=== PATIENT | female | born 1995 | race Caucasian/White ===

== ENCOUNTER 2018-03-15 05:41 | Emergency (ER) | payer MEDICARE ==
[~2018-03-15] VITALS: Ht 160 cm; Wt 86.2 kg
[~2018-03-15 05:41] MED LIST: BENTYL 10 MG CA10 M1 PO; CARVEDILOL12.5 MG PO; CYMBALTA20 MG PO; FLEXERIL; GABAPENTIN100 MG; HYDROCODON-ACE1 EAC7 PO; LISINOPRIL20 MG; LYRICA 50 MG50 MG PO; NORVASC2.5 MG PO; PERCOCET 5-3251 EACH PO; PREDNISONE 20 M20 M1 PO; REMICADE 1100 MG/VIA; TRAMADOL 50 MG50 MG PO; ZANAFLEX2 MG PO; ZESTRIL5 MG PO; ZOFRAN ODT4 MG PO; [UNRECOGNIZED DRUG - REMARK]
[2018-03-15] MEDS ORDERED: PROTONIX 20 MG20 M1 PO (05:56)
[2018-03-15] MEDS ORDERED: AMITRIPTYLINE H25 M2 PO (05:57)
[2018-03-15] MEDS ORDERED: HUMIRA40 MG/0.8 SUBQ (05:57)
[2018-03-15] MEDS ORDERED: LOTEMAX3.5 GM OPHTHALMIC (05:58)
[2018-03-15] MEDS ORDERED: OXACILLIN SODIUM OPHTHALMIC (05:58)
[2018-03-15] MEDS ORDERED: PREDNISONE 10 M10 M1 PO (06:23)
[2018-03-15] MEDS ORDERED: HYDROCODON-ACE1 EAC7 PO (06:23)
[2018-03-15] MEDS ORDERED: TRIAMCINOLONE A80 G2 TOP (06:28)
[2018-03-15 06:41] VITALS: BP 121/81
== END 2018-03-15 06:41 | disposition home or self-care (01) ==
LOC: M.ERS 05:41
DX: L25.9 Unspecified contact dermatitis, unspecified cause (principal); G43.909 Migraine, unspecified, not intractable, without status migrainosus; I10 Essential (primary) hypertension; Z91.041 Radiographic dye allergy status; Z88.8 Allergy status to other drugs, medicaments and biological substances

== ENCOUNTER 2018-04-21 14:49 | Emergency (ER) | payer MEDICARE ==
[~2018-04-21] VITALS: Ht 160 cm; Wt 79.4 kg
[~2018-04-21 14:49] MED LIST changes: +AMITRIPTYLINE H25 M2 PO; +HUMIRA40 MG/0.8 SUBQ; +LOTEMAX3.5 GM OPHTHALMIC; +OXACILLIN SODIUM OPHTHALMIC; +PREDNISONE 10 M10 M1 PO; +PROTONIX 20 MG20 M1 PO; +TRIAMCINOLONE A80 G2 TOP
[2018-04-21] MEDS ORDERED: COREG6.25 MG PO (15:05)
[2018-04-21 15:36] LABS: URINE BILIRUBIN NEGATIVE (Negative); URINE BLOOD 3+ (Negative); URINE CLARITY CLEAR; URINE COLOR YELLOW; URINE GLUCOSE-RANDOM NEGATIVE (Negative); URINE KETONES NEGATIVE (Negative); URINE LEUKOCYTES TRACE (Negative); URINE NITRITE NEGATIVE (Negative); URINE PROTEIN NEGATIVE (Negative); URINE SPECIFIC GRAVITY 1.025 (1.005-1.030); URINE UROBILINOGEN 0.2 E.U./dl (0.2-1.0)
[2018-04-21 15:36] LABS: ABSOLUTE BASOPHILS 0.1 thou/uL (0.0-0.2); ABSOLUTE EOSINOPHILS 0.1 thou/uL (0.0-0.7); ABSOLUTE LYMPHOCYTES 3.2 thou/uL (0.8-5.3); ABSOLUTE MONOCYTES 1.1 thou/uL (0.0-1.2); ABSOLUTE NEUTROPHILS 8.3 thou/uL (1.6-8.1); BASOPHILS 0.6 %; EOSINOPHILS 1.2 %; HEMATOCRIT 39.5 % (37.0-47.0); HEMOGLOBIN 13.3 gm/dL (12.0-15.0); MCH 29.5 pg (26.0-34.0); MCHC 33.7 g/dL (28.0-37.0); MCV 87.4 fL (80.0-100.0); MONOCYTES 8.5 %; MPV 7.9 fl. (7.2-11.1); NUCLEATED RBCS 0 /100WBC; PLATELET COUNT* 440 thou/uL (150-400); POLYS 64.7 %; RBC 4.52 mil/uL (4.20-5.00); RDW-CV 15.5 % (10.5-14.5); WBC 12.8 thou/uL (4.0-11.0)
[2018-04-21 15:41] LABS: MUCUS None Seen strn/LPF (None Seen); SQUAMOUS 4-10 Moderate /LPF (0-3)
[2018-04-21 15:42] LABS: BACTERIA 1-9 Few /HPF (None Seen); CASTS None Seen /LPF (None Seen); CRYSTALS None Seen /LPF (None Seen); URINE WBC 0-5 Rare /HPF (0-5)
[2018-04-21 15:52] LABS: CALCIUM 9.1 mg/dL (8.5-10.1); CREATININE 0.8 mg/dL (0.6-1.3); POTASSIUM 4.1 mmol/L (3.5-5.1)
[2018-04-21 15:59] LABS: ALBUMIN 3.6 g/dL (3.4-5.0); TOTAL BILIRUBIN 0.3 mg/dL (<0.1-1.0); TOTAL PROTEIN 8.1 g/dL (6.4-8.2)
[2018-04-21 16:18] LABS: AMP/METHAMP Negative (Negative); BARBITURATES Negative (Negative); BENZODIAZEPINES Negative (Negative); COCAINE Negative (Negative); METHADONE Negative (Negative); OPIATES Negative (Negative); PCP Negative (Negative); THC Negative (Negative)
[2018-04-21] MEDS ORDERED: PHENERGAN 25 MG25 M1 PO (17:50)
[2018-04-21 17:56] VITALS: BP 145/83
== END 2018-04-21 17:56 | disposition home or self-care (01) ==
LOC: M.ERS 14:49
PROVIDERS: Family Medicine
DX: K52.9 Noninfective gastroenteritis and colitis, unspecified (principal); G43.909 Migraine, unspecified, not intractable, without status migrainosus; F41.9 Anxiety disorder, unspecified; E78.00 Pure hypercholesterolemia, unspecified; Z91.041 Radiographic dye allergy status; Z88.8 Allergy status to other drugs, medicaments and biological substances; K50.90 Crohn's disease, unspecified, without complications

== ENCOUNTER 2018-05-31 15:09 | Emergency (ER) | payer MEDICARE ==
[~2018-05-31] VITALS: Ht 160 cm; Wt 79.4 kg
[~2018-05-31 15:09] MED LIST changes: +COREG6.25 MG PO; +PHENERGAN 25 MG25 M1 PO
[2018-05-31 15:21] VITALS: BP 169/114
[2018-05-31] MEDS ORDERED: ULTRAM 50MG TAB50 MG PO (15:24)
[2018-05-31] MEDS ORDERED: SCOPOLAMINE1 EACH TRANSDERM (15:24)
[2018-05-31] MEDS ORDERED: AUGMENTIN 875-1 EACH PO (15:45)
[2018-05-31] MEDS ORDERED: OCUFLOX5 ML OTIC (15:45)
== END 2018-05-31 15:50 | disposition home or self-care (01) ==
LOC: M.ERS 15:09
DX: H60.93 Unspecified otitis externa, bilateral (principal); H66.93 Otitis media, unspecified, bilateral; Z91.041 Radiographic dye allergy status; Z88.8 Allergy status to other drugs, medicaments and biological substances

== ENCOUNTER 2018-07-18 17:00 | Emergency (ER) | payer MEDICARE ==
[~2018-07-18] VITALS: Ht 160 cm; Wt 79.4 kg
[~2018-07-18 17:00] MED LIST changes: +AUGMENTIN 875-1 EACH PO; +OCUFLOX5 ML OTIC; +SCOPOLAMINE1 EACH TRANSDERM; +ULTRAM 50MG TAB50 MG PO
[2018-07-18 17:33] LABS: ABSOLUTE BASOPHILS 0.1 thou/uL (0.0-0.2); ABSOLUTE EOSINOPHILS 0.1 thou/uL (0.0-0.7); ABSOLUTE LYMPHOCYTES 2.4 thou/uL (0.8-5.3); ABSOLUTE MONOCYTES 1.4 thou/uL (0.0-1.2); ABSOLUTE NEUTROPHILS 10.8 thou/uL (1.6-8.1); BASOPHILS 0.4 %; EOSINOPHILS 0.8 %; HEMATOCRIT 43.8 % (37.0-47.0); HEMOGLOBIN 14.6 gm/dL (12.0-15.0); MCH 29.3 pg (26.0-34.0); MCHC 33.4 g/dL (28.0-37.0); MCV 87.8 fL (80.0-100.0); MONOCYTES 9.5 %; MPV 8.3 fl. (7.2-11.1); NUCLEATED RBCS 0 /100WBC; PLATELET COUNT* 430 thou/uL (150-400); POLYS 73.3 %; RBC 4.98 mil/uL (4.20-5.00); RDW-CV 14.5 % (10.5-14.5); WBC 14.8 thou/uL (4.0-11.0)
[2018-07-18 17:43] LABS: CALCIUM 9.2 mg/dL (8.5-10.1); POTASSIUM 3.1 mmol/L (3.5-5.1)
[2018-07-18 17:48] LABS: ALBUMIN 3.5 g/dL (3.4-5.0); TOTAL BILIRUBIN 0.6 mg/dL (<0.1-1.0); TOTAL PROTEIN 8.7 g/dL (6.4-8.2)
[2018-07-18 17:54] LABS: URINE BLOOD TRACE (Negative); URINE CLARITY CLEAR; URINE COLOR YELLOW; URINE GLUCOSE-RANDOM NEGATIVE (Negative); URINE KETONES 1+ (Negative); URINE PROTEIN 1+ (Negative); URINE UROBILINOGEN 0.2 E.U./dl (0.2-1.0)
[2018-07-18 17:56] LABS: ICTOTEST (BILI CONFIRMATORY) Negative (Negative); URINE BILIRUBIN 1+ (Negative); URINE LEUKOCYTES-REFLEX 2+ (Negative); URINE NITRITE-REFLEX POSITIVE (Negative)
[2018-07-18 18:00] LABS: SQUAMOUS 4-10 Moderate /LPF (0-3); URINE WBC-REFLEX 0-5 Rare /HPF (0-5)
[2018-07-18 18:01] LABS: BACTERIA-REFLEX 1-9 Few /HPF (None Seen); CRYSTALS None Seen /LPF (None Seen); HYALINE CASTS 0-3 Few /LPF (None Seen); URINE RBC 0-2 Rare /HPF (0-2)
[2018-07-18] MEDS ORDERED: BACTRIM DS TAB1 EACH PO (19:42)
[2018-07-18] MEDS ORDERED: NORCO 5-325 TA1 EAC1 PO (19:42)
[2018-07-18] MEDS ORDERED: FLAGYL500 MG PO (19:42)
[2018-07-18] MEDS ORDERED: IBUPROFEN 800800 M1 PO (19:42)
[2018-07-18 20:09] VITALS: BP 127/92
--- NOTE | 2018-07-20 16:55 | EKG ---
[place] [address] ELECTROCARDIOGRAM REPORT Name: JOSIE SAEEDN Room: [facility]#: [id number] Admission: 07/18/18 Attend Phys: Discharge: 07/18/18 Date of : [birth year] Report #: [id number] THIS REPORT FOR: //name// [facility] ED Test Date: 2018-07-18 Test Time: 17:52:11 Pat Name: JOSIE SAEED Department: Room: Gender: F Physical Science Technician: MS : 1995 Requested By: Nani Galloway Order Number: [id number] MD: Jaiden Rodriguez Measurements Intervals [place] Rate: 124 P: 24 WI: 132 QRS: -5 QRSD: 88 T: 15 QT: 300 QTc: 431 Interpretive Statements Sinus tachycardia No previous ECG available for comparison Electronically Signed On 07-20-2018 16:55:38 CDT by Jaiden Rodriguez [email or web address] <ELECTRONICALLY SIGNED> By: Jaiden Rodriguez MD, [facility] 07/20/18 1655 1752 1752 Jaiden Rodriguez MD, FACC /EPI
== END 2018-07-18 20:08 | disposition home or self-care (01) ==
LOC: M.ERS 17:00
PROVIDERS: Nurse Practitioner Family
DX: N39.0 Urinary tract infection, site not specified (principal); N76.0 Acute vaginitis; B96.89 Other specified bacterial agents as the cause of diseases classified elsewhere; L73.9 Follicular disorder, unspecified; G43.909 Migraine, unspecified, not intractable, without status migrainosus; F41.9 Anxiety disorder, unspecified; K50.90 Crohn's disease, unspecified, without complications; Z91.041 Radiographic dye allergy status; Z88.8 Allergy status to other drugs, medicaments and biological substances

== ENCOUNTER 2018-11-12 13:43 | Emergency (ER) | payer MEDICARE ==
[~2018-11-12] VITALS: Ht 160 cm; Wt 79.4 kg
[~2018-11-12 13:43] MED LIST changes: +BACTRIM DS TAB1 EACH PO; +FLAGYL500 MG PO; +IBUPROFEN 800800 M1 PO; +NORCO 5-325 TA1 EAC1 PO
[2018-11-12] MEDS ORDERED: COREG25 MG PO (14:05)
[2018-11-12] MEDS ORDERED: TRAMADOL 50 MG50 MG PO (14:05)
[2018-11-12] MEDS ORDERED: HUMIRA40 MG/0.8 SUBQ (14:06)
[2018-11-12] MEDS ORDERED: PROTONIX40 M1 PO (14:06)
[2018-11-12] MEDS ORDERED: LISINOPRIL20 MG PO (14:07)
[2018-11-12] MEDS ORDERED: IMITREX 25 MG T25 M1 PO (14:07)
[2018-11-12] MEDS ORDERED: AMLODIPINE BESY10 MG PO (14:07)
[2018-11-12] MEDS ORDERED: SCOPOLAMINE1 EACH TRANSDERM (14:08)
[2018-11-12] MEDS ORDERED: ADVAIR HFA 230M12 GM INH (14:09)
[2018-11-12] MEDS ORDERED: VOLTAREN GEL 1100 G2 TOP (14:09)
[2018-11-12] MEDS ORDERED: VENTOLIN HFA 1818 GM INH (14:09)
[2018-11-12] MEDS ORDERED: CIPRO500 M1 PO (15:17)
[2018-11-12 15:38] VITALS: BP 163/109
== END 2018-11-12 15:38 | disposition home or self-care (01) ==
LOC: M.ERS 13:43
DX: N76.4 Abscess of vulva (principal); K50.90 Crohn's disease, unspecified, without complications; G43.909 Migraine, unspecified, not intractable, without status migrainosus; F41.9 Anxiety disorder, unspecified; F17.210 Nicotine dependence, cigarettes, uncomplicated; Z91.041 Radiographic dye allergy status; Z88.8 Allergy status to other drugs, medicaments and biological substances